=== PATIENT | female | born 1965 | race Caucasian/White ===

== ENCOUNTER 2016-04-15 08:58 | Inpatient (IN) | payer OTHER ==
[2016-04-15] VITALS (12 sets, daily range): BP systolic 98–127; BP diastolic 55–74; PULSE 67–80; RESP 13–15; TEMP 97.7; Ht 165.1 cm; Wt 64.0 kg
[~2016-04-15] VITALS: Ht 165.1 cm; Wt 64.0 kg
[~2016-04-15 08:58] MED LIST: ACET-2047 PO; CARI350T PO; CLIN-73 PO; CLON2TAB3 PO; DULO20CA43 PO; GABA-528 PO; HYDR-762 PO; IBUP-1542 PO; KLO5 PO; LEVO125T75 PO; LEVO25TA50 PO; LISI20TA11 PO; METH10TA2 PO
[2016-04-15] MEDS ORDERED: SOD CHLORIDE 0.9% 1,000 ML IV STA (09:43)
[2016-04-15] MEDS ORDERED: CHARCOAL (AQ) 50 GM/240 ML BTL PO STA (09:43)
[2016-04-15 10:18] LABS: BASOPHILS % 0.5 % (0.0-2.0); EOSINOPHILS # 0.2 10^3/ul (0.0-0.5); EOSINOPHILS % 3.3 % (0.0-7.0); HEMATOCRIT 37.2 % (37.0-47.0); HEMOGLOBIN 12.4 g/dl (12.0-16.0); LYMPHOCYTES # 0.9 10^3/ul (0.8-2.9); LYMPHOCYTES % 12.1 % (15.0-51.0); MEAN CORPUSCULAR HEMOGLOBIN 29.7 pg (29.0-33.0); MEAN CORPUSCULAR HGB CONC 33.3 g/dl (32.0-37.0); MEAN CORPUSCULAR VOLUME 89.1 fl (82.0-101.0); MEAN PLATELET VOLUME 8.7 fl (7.4-10.4); MONOCYTE # 0.5 10^3/ul (0.3-0.9); MONOCYTES % 6.9 % (0.0-11.0); NEUTROPHIL # 5.4 10^3/ul (1.6-7.5); NEUTROPHILS % 77.2 % (39.0-77.0); PLATELET COUNT 262 10^3/UL (140-440); RED BLOOD COUNT 4.17 10^6/ul (4.20-5.40)
[2016-04-15 10:24] LABS: CONDITION 1
[2016-04-15 10:26] LABS: ALBUMIN 3.6 g/dl (3.3-4.9)
[2016-04-15 10:27] LABS: CHLORIDE 104 mmol/L (97-110); POTASSIUM 4.5 mmol/L (3.5-5.1); SODIUM 140 mmol/L (135-144)
[2016-04-15 10:29] LABS: ALBUMIN/GLOBULIN RATIO 1.09; ALKALINE PHOSPHATASE 81 IU/L (42-121); ANION GAP 13 (8-16); ASPARTATE AMINO TRANSFERASE 37 IU/L (15-46); CARBON DIOXIDE 28 mmol/L (21-31); CREATININE 0.77 mg/dl (0.44-1.00); TOTAL PROTEIN 6.9 g/dl (6.1-8.1)
[2016-04-15 10:30] LABS: ALANINE AMINOTRANSFERASE 34 IU/L (13-69); BLOOD UREA NITROGEN 11 mg/dl (7-20); CALCIUM 8.8 mg/dl (8.4-10.2); GLUCOSE 62 mg/dl (70-220)
[2016-04-15 10:40] LABS: ACETAMINOPHEN < 10.0 ug/ml (10.0-30.0); ETHANOL < 10.0 mg/dl; SALICYLATE < 1.0 mg/dl (5.0-30.0)
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
[2016-04-15 11:49] LABS: ADD UMIC NO; URINE BILIRUBIN (Dip) NEGATIVE (NEGATIVE); URINE BLOOD (Dip) NEGATIVE (NEGATIVE); URINE COLOR LT. YELLOW (YELLOW); URINE GLUCOSE (Dip) NEGATIVE (NEGATIVE); URINE KETONES (Dip) NEGATIVE (NEGATIVE); URINE LEUKOCYTE ESTERASE (Dip) NEGATIVE (NEGATIVE); URINE NITRITE (Dip) NEGATIVE (NEGATIVE); URINE TOTAL PROTEIN (Dip) NEGATIVE (NEGATIVE); URINE UROBILINOGEN (Dip) 0.2 E.U./dL (0.1-1.0)
[2016-04-15] MEDS ORDERED: NALOXONE 2 MG SYG ONE (11:51)
[2016-04-15] MEDS ORDERED: NALOXONE 2 MG/2 ML SYG 2 MG in DEXTROSE 5% 498 ML IV SCH ×2 (12:00→13:00)
[2016-04-15] MEDS ORDERED: NALOXONE 2 MG SYG IV ONE (12:00)
[2016-04-15] MEDS ORDERED: DEXTROSE 50% 50 ML SYRINGE IV PRN (12:00)
[2016-04-15] MEDS ORDERED: DEXTROSE 50% 50 ML SYRINGE ONE (12:12)
[2016-04-15 12:19] LABS: BARBITURATES NEGATIVE (NEGATIVE); CANNABINOIDS NEGATIVE (NEGATIVE); COCAINE NEGATIVE (NEGATIVE); OPIATES POSITIVE (NEGATIVE)
[2016-04-15 12:20] LABS: BENZODIAZEPINES POSITIVE (NEGATIVE)
[2016-04-15] MEDS ORDERED: SOD CHLORIDE 0.9% 1,000 ML IV ONE (12:30)
[2016-04-15] MEDS ORDERED: SOD CHLORIDE 0.9% 1,000 ML IV SCH (12:54)
[2016-04-15] MEDS ORDERED: NITROGLYCERIN (SL) 0.4 MG TAB SL PRN (13:00)
[2016-04-15] MEDS ORDERED: LORAZEPAM 2 MG INJ IV PRN (13:00)
[2016-04-15] MEDS ORDERED: ONDANSETRON 4 MG INJ IV PRN (13:00)
[2016-04-15] MEDS ORDERED: DOCUSATE SODIUM 100 MG CAP PO PRN (13:00)
[2016-04-15] MEDS ORDERED: hydrALAzine 20 MG INJ IV PRN (14:30)
[2016-04-15] MEDS: DEXTROSE 5%-0.45% NACL 1,000 ML IV SCH ×2 (14:54→23:53)
[2016-04-15] MEDS ORDERED: SOD CHLORIDE 0.9% 500 ML IV ONE (15:30)
[2016-04-15] MEDS ORDERED: NORepinephrine 8MG/250 ML (PMX 0 ML ONE (15:31)
--- NOTE | 2016-04-15 17:26 | QN ---
Documentation Job number: [id number] Comment H&P done. For unclear reasons, this is not showing up in [facility]. Medical records aware. MOSES DEVI NP Apr 15, 2016 17:26
--- NOTE | 2016-04-15 18:10 | HP ---
DATE OF ADMISSION: 04/15/2016 REASON FOR ADMISSION: Brought in to the emergency room because of suicidal ideation and depression with suicidal attempt. HISTORY OF PRESENT ILLNESS: This is a 51-year-old female who is homeless with past medical history of depression, hypothyroidism, hypertension, hepatitis C, fibromyalgia and heroin abuse, currently on methadone, who was brought in by [employer] because of suicidal attempt at suicidal ideation. As per the report, the patient stated that she "wants to ". Upon further interrogation, the patient verbalized that she ingested fifteen 50 mg pills of Vistaril at 7:00 a.m. on 04/15/2016. The patient had no visible injuries to the body upon examination. The patient was given activated charcoal in the emergency room. As per [facility] pharmacist, the patient does not need to be given any charcoal at this time. As per the documentation, the patient was awake and alert at that time. The patient's vital signs were stable upon presentation. Later, the patient's blood pressure was noticed to be 63/40, which was treated with a sodium chloride IV bolus with improvement in the patient's blood pressure. The patient's urine drug screen was positive for benzodiazepines and opioids. The patient's ethyl alcohol level was less than 10. There was no 12-lead EKG done in the emergency room. As per the ER physician's notes, the patient had a prior attempts of suicide. The patient was lethargic, hence it was unable to elicit further information from the patient. The details were obtained by review of the patient's medical records. The patient was given a single dose of IV Narcan and the patient was started on Narcan too. PAST MEDICAL HISTORY: Hypothyroidism, seizure disorder, hypertension, depression, hepatitis C, fibromyalgia. PAST SURGICAL HISTORY: Unknown. HOME MEDICATIONS: 1. Soma 350 mg p.o. q.8h. p.r.n. muscle spasms. 2. Lisinopril 20 mg p.o. daily. 3. Clonazepam 2 mg p.o. t.i.d. 4. Cymbalta 20 mg p.o. daily. 5. Gabapentin 800 mg p.o. at bedtime. 6. Methadone 117 mg p.o. daily. 7. Synthroid 125 mg p.o. before breakfast. ALLERGIES: 1. PENICILLIN. 2. SULFA. 3. CEPHALEXIN. SOCIAL HISTORY: The patient is homeless. Currently an every day smoker. Denies any use of ETOH. Prior history of heroin abuse, currently on methadone. REVIEW OF SYSTEMS: Unable to obtain the review of systems because of the patient's clinical presentation. PHYSICAL EXAMINATION: VITAL SIGNS: Temperature 97.7, pulse 77, respiratory rate 70, blood pressure 112/87, oxygen saturation 100% on room air. GENERAL: This is an adequately built female lying in bed, very lethargic, in no apparent distress. HEENT: Head normocephalic and atraumatic. Eyes: Anicteric sclerae, pinpoint pupils, pupils are equal. ENT: Nasal septum is midline. Oral mucosa is dry. Black charcoal powder found in the oral mucosa. NECK: Supple. No JVD noticed. RESPIRATORY: Bilaterally clear to auscultation. No adventitious breath sounds. No use of accessory muscles for respiration. CARDIAC: Regular rate and rhythm. No obvious murmurs heard. ABDOMEN: Soft. Bowel sounds hypoactive in all 4 quadrants. GENITOURINARY: Deferred. EXTREMITIES: No cyanosis, no clubbing, no edema. Peripheral pulses are palpable. NEUROLOGIC: The patient is lethargic. Minimal response to painful stimuli. Skin intact. Multiple tattoos. LAB & DIAGNOSTIC DATA: WBC 7.0, Hgb 12.4, Hct37.2, Plt 262. Sodium 140 , potassium 4.5, chloride 104 , carbon [id number], anion gap 13, BUN 11, creatinine 0.77, glucose 62. Urine drug toxicology: Positive for opiates and benzodiazepines. IMPRESSION: This is a 51-year-old female who was brought to the emergency room because of a suicide attempt with ingestion 15 tablets of Vistaril who will be admitted here for further treatment and evaluation. ASSESSMENT AND PLAN: 1. Intentional overdosing with antihistamines. The patient already received a single dose of Narcan in the emergency room. The patient will be maintained on a Narcan drip. The patient's airway will be monitored closely. The patient's cardiac rhythm will be monitored closely, including the QT interval. Poison Control was informed about the patient's case. Follow up with Poison Control on a periodic basis. 2. Depression with suicidal ideation. The patient will be kept on 1:1 supervision. Once the patient is medically stable, the patient needs transfer to a psych facility. 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 3. Hypotension, most probably from overdosing. The patient's hypotension responded well to IV resuscitation. The patient will be maintained on IV fluids. 4. Hypothyroidism. A thyroid function study will be obtained on this patient. She will be resumed on Synthroid once she is awake and alert. 5. Essential hypertension (history). The patient's antihypertensives will be held at this time because of the current hypotensive episode. The patient will be started on p.r.n. antihypertensives for any systolic blood pressure readings greater than 160 mmHg. 6. History of heroin abuse, on methadone. All the patient's oral medications will be held at this time until the patient is more awake and alert. 7. Nicotine use. The patient is a current everyday nicotine user. The patient will be provided with a nicotine patch if she develops any symptoms of nicotine withdrawal. 8. Incomplete database. The patient's comprehensive medical history is unavailable at this time because of the patient's clinical condition. When the patient is more awake and alert, will obtain a complete medical history on this patient. PLAN. The patient will be admitted to intensive care unit. The patient will be kept n.p.o. The patient's airway will be monitored closely. Continuous capnography will be done to evaluate for any respiratory compromise. The patient will be monitored for any seizures. The patient will be monitored for any QT prolongation. The patient will remain a FULL CODE. The patient will have a 1:[address] The patient will be started on DVT prophylaxis and gastrointestinal prophylaxis. The rest of the patient's management will be based on the clinical course and the results of diagnostic studies. Based on the patient's clinical presentation, she most probably requires at least 2 midnights' stay for further management and evaluation of her clinical presentation. The case and management of this patient was fully discussed with Dr. Mace. Approximately 60 minutes was spent on the history and physical on this patient. MOSES MACE MD, AM/JEFF Conf#: [id number] DID#: [id number] MTDD
--- NOTE | 2016-04-15 19:18 | RADRPT ---
PROCEDURE: XR Chest. CLINICAL INDICATION: Chest pain TECHNIQUE: Single frontal chest x-ray. COMPARISON: None. FINDINGS: The lungs are clear. No focal opacification is seen. The cardiomediastinal silhouette is unremarka ble. Aortic atherosclerotic vascular calcifications are identified. The osseous structures are unr emarkable. IMPRESSION: 1. There is no acute cardiopulmonary process. RPTAT: HMJB .Tc Harp MD, MD Date Time Electronically viewed and signed by .Tc Harp MD, on 04/15/2016 10:24 .B/
[2016-04-15] MEDS: FAMOTIDINE 20 MG INJ IV SCH (21:53)
[2016-04-16] VITALS (34 sets, daily range): BP systolic 95–122; BP diastolic 48–88; PULSE 65–85; RESP 11–18
[2016-04-16 05:17] LABS: BASOPHILS % 0.4 % (0.0-2.0); HEMATOCRIT 33.2 % (37.0-47.0); HEMOGLOBIN 11.1 g/dl (12.0-16.0); LYMPHOCYTES # 0.5 10^3/ul (0.8-2.9); LYMPHOCYTES % 5.3 % (15.0-51.0); MEAN CORPUSCULAR HEMOGLOBIN 29.5 pg (29.0-33.0); MEAN CORPUSCULAR HGB CONC 33.3 g/dl (32.0-37.0); MEAN CORPUSCULAR VOLUME 88.6 fl (82.0-101.0); MEAN PLATELET VOLUME 8.6 fl (7.4-10.4); MONOCYTE # 0.3 10^3/ul (0.3-0.9); MONOCYTES % 2.9 % (0.0-11.0); NEUTROPHIL # 7.9 10^3/ul (1.6-7.5); NEUTROPHILS % 91.4 % (39.0-77.0); PLATELET COUNT 240 10^3/UL (140-440); RED BLOOD COUNT 3.74 10^6/ul (4.20-5.40); RED CELL DISTRIBUTION WIDTH 13.3 % (11.5-14.5); UNCORRECTED WBC 8.6 10^3/ul (4.8-10.8); WHITE BLOOD COUNT 8.6 10^3/ul (4.8-10.8)
[2016-04-16 05:22] LABS: INR 1.1; PROTIME 14.2 Sec (12.2-14.2); PT RATIO 1.1
[2016-04-16 05:23] LABS: PARTIAL THROMBOPLASTIN TIME 27.9 Sec (25.0-35.0)
[2016-04-16 05:33] LABS: CONDITION 1; LH ANALYZER COMMENTS 1
[2016-04-16 05:49] LABS: CHOL/HDL RATIO 2.3 RATIO; PHOSPHORUS 4.1 mg/dl (2.5-4.9)
[2016-04-16 05:54] LABS: ALBUMIN 2.9 g/dl (3.3-4.9)
[2016-04-16 05:55] LABS: POTASSIUM 3.7 mmol/L (3.5-5.1)
[2016-04-16 05:57] LABS: ALBUMIN/GLOBULIN RATIO 0.9; CREATININE 0.8 mg/dl (0.44-1.00); TOTAL PROTEIN 6.1 g/dl (6.1-8.1)
[2016-04-16] MEDS: FAMOTIDINE 20 MG INJ IV SCH ×2 (08:15→20:59)
--- NOTE | 2016-04-16 10:17 | PN ---
Date/Time of Note Date/Time of Note DATE: 04/16/16 TIME: 10:13 Assessment/Plan VTE Prophylaxis VTE Prophylaxis Intervention: SCD's Lines/Catheters IV [facility] (from [facility] Peripheral IV Urinary Cath still in place: Yes Reason Cath still needed: other (indicate) (monitor I&O) Assessment/Plan Chief Complaint/Hosp Course Assessment and plan 1. Intentional overdose with Vistaril and reported heroin. Patient is status post Narcan drip. Is more alert at this time. Poison control performed about patient's case. Continue the recommendations. Continue cardiac monitoring. 2. History of major depression and suicidal ideation/attempt. Continue patient on one-to-one supervision. Patient be transferred to psychiatric facility once medically stable. transfer and line up worker to follow. Patient to be evaluated by telepsych 3. Hypotension. Likely secondary to opiate overdose. Continue IV fluids. Monitor for hypotension. 4. Hypothyroidism. We'll resume Synthroid 5. History of essential hypertension. Stable at present. We'll provide with antihypertensives for systolic greater than 160 6. History of heroin abuse. Patient does take methadone and follow-up at a methadone clinic. We'll get pain management physician to help with methadone dosing 7. History of nicotine abuse. Cessation advised. Disposition and plan: Continue one-to-one sitter. Patient to be evaluated by telepsych consult. Await for clinical improvement of mental status. Discussed plan of care with Dr. Roca Problems: Subjective 24 Hr Interval Summary Free Text/Dictation Patient remains in ICU. Still somnolent. Was able to discuss with patient and she did state that she did have suicidal ideation prior to this admission. Exam/Review of Systems Vital Signs Vitals Vital Signs Date Time Temp Pulse Resp B/P Pulse Ox O2 Delivery O2 Flow Rate FiO2 04/16/16 09:30 79 13 113/64 100 04/16/16 09:00 Room Air 04/16/16 08:00 97.3 04/15/16 23:00 2.0 Intake and Output 04/15/16 04/15/16 04/16/16 15:00 23:00 07:00 Intake Total 300 ml 820 ml Output Total 1900 ml 1400 ml Balance -1600 ml -580 ml Exam General: No acute signs or symptoms of distress, somnolent Eyes: pupils equal round, Anicteric sclera Neck: Supple nontender, no JVD Cardiac: S1, S2 auscultated, regular rhythm and rate Pulmonary: No coarse rhonchi or breathing auscultated GI: Abdomen soft nontender nondistended, bowel sounds active Extremities: No edema bilateral lower extremities Skin: Clean dry and intact Neurologic: Alert to person place and situation, slightly lethargic Results Result Diagram: 04/16/16 0436 04/16/16 0436 Results 24 hrs Laboratory Tests Test 04/15/16 11:40 04/15/16 12:54 04/15/16 19:40 04/16/16 04:36 Urine Amphetamines Screen NEGATIVE Urine Barbiturates NEGATIVE Urine Benzodiazepines Screen POSITIVE Urine Bilirubin NEGATIVE Urine Cannabinoids NEGATIVE Urine Clarity CLEAR Urine Cocaine Screen NEGATIVE Urine Color LT. YELLOW Urine Glucose NEGATIVE Urine Hemoglobin NEGATIVE Urine Ketones NEGATIVE Urine Leukocyte Esterase NEGATIVE Urine Nitrite NEGATIVE Urine Opiates Screen POSITIVE Urine Specific [place] 1.020 Urine Total Protein NEGATIVE Urine Urobilinogen 0.2 E.U./dL Urine pH 6.0 Free Thyroxine 3.40 H Hemoglobin A1c 5.0 Thyroid Stimulating Hormone (TSH) 0.760 Troponin I < 0.012 < 0.012 Urine Test NEGATIVE Activated Partial Thromboplast Time 27.9 Alanine Aminotransferase (ALT/SGPT) 40 Albumin 2.9 L Albumin/Globulin Ratio 0.90 Alkaline Phosphatase 67 Anion Gap 16 Aspartate Amino Transf (AST/SGOT) 46 Basophils # 0.0 Basophils % 0.4 Blood Urea Nitrogen 21 H Calcium Level 8.0 L Carbon Dioxide Level 20 L Chloride Level 111 H Cholesterol Level 142 Cholesterol/HDL Ratio 2.3 Creatinine 0.80 Direct Bilirubin 0.00 Eosinophils # 0.0 Eosinophils % 0.0 Globulin 3.20 Glucose Level 92 HDL Cholesterol 60 Hematocrit 33.2 L Hemoglobin 11.1 L INR International Normalized Ratio 1.10 Indirect Bilirubin 0.0 LDL Cholesterol, Calculated 76 Lactic Acid Level 1.8 Lymphocytes # 0.5 L Lymphocytes % 5.3 L Magnesium Level 2.0 Mean Corpuscular Hemoglobin 29.5 Mean Corpuscular Hemoglobin Concent 33.3 Mean Corpuscular Volume 88.6 Mean Platelet Volume 8.6 Monocytes # 0.3 Monocytes % 2.9 Neutrophils # 7.9 H Neutrophils % 91.4 H Nucleated Red Blood Cells # 0.0 Nucleated Red Blood Cells % 0.0 Phosphorus Level 4.1 Platelet Count 240 Potassium Level 3.7 Prothrombin Time 14.2 Prothrombin Time Ratio 1.1 Red Blood Count 3.74 L Red Cell Distribution Width 13.3 Sodium Level 143 Total Bilirubin 0.0 L Total Protein 6.1 Triglycerides Level 30 White Blood Count 8.6 # Medications Medications Current Medications Naloxone HCl/ Dextrose (Narcan/D5W) 500 ml @ 0 mls/hr TITRATE IV Last administered on 04/15/16 14:57; Admin Dose 199.6 MLS/HR; Start 04/15/16 at 12:00 Dextrose (D50w Syringe) 50 ml 1159 PRN IV DECREASED GLUCOSE Last administered on 04/15/16 12:13; Admin Dose 50 ML; Start 04/15/16 at 12:00 Ondansetron HCl (Zofran Inj) 4 mg Q6H PRN IV NAUSEA AND/OR VOMITING; Start 04/15 at 13:00 Nitroglycerin (Nitroglycerin (Sl Tab) 0.4 Mg) 1 tab Q5M PRN SL CHEST PAIN; Start 04/15/16 at 13:00 Acetaminophen (Tylenol Liquid) 650 mg Q6H PRN PO PAIN LEVEL 1-3 OR FEVER; Start 04/15/16 at 13:00 Lorazepam (Ativan) 1 mg Q2H PRN IV ANXIETY; Start 04/15/16 at 13:00 Docusate Sodium (Colace) 100 mg Q12H PRN PO CONSTIPATION; Start 04/15/16 at 13: 00 Famotidine 20 mg 20 mg Q12 IV Last administered on 04/16/16 08:15; Admin Dose 20 MG; Start 04/15/16 at 21:00 Dextrose/Sodium Chloride (D5-1/2ns) 1,000 ml @ 100 mls/hr Q10H IV Last administered on 04/15/16 23:53; Admin Dose 100 MLS/HR; Start 04/15/16 at 14:00 Hydralazine HCl 10 mg 10 mg Q6H PRN IV SBP>160; Start 04/15/16 at 14:30 Norepinephrine/ Dextrose (Levophed/D5W) 500 ml @ 1.87 mls/hr TITRATE IV ; Start 04/15/16 at 15:30 TIGIST LOZADA Apr 16, 2016 10:17
[2016-04-16] MEDS: DEXTROSE 5%-0.45% NACL 1,000 ML IV SCH ×2 (10:20→15:55)
[2016-04-16] MEDS: METHADONE 10 MG TAB PO SCH (14:59)
[2016-04-17] MEDS: OXYMETAZOLINE 0.05% 15 ML NAS SPRAY NASAL PRN ×2 (00:43→12:38)
[2016-04-17] MEDS: DEXTROSE 5%-0.45% NACL 1,000 ML IV SCH ×2 (00:49→15:07)
[2016-04-17] MEDS: ACETAMINOPHEN 650MG/20.3ML CUP PO PRN (03:38)
[2016-04-17 05:17] LABS: BASOPHILS % 0.2 % (0.0-2.0); EOSINOPHILS # 0.1 10^3/ul (0.0-0.5); HEMATOCRIT 30.9 % (37.0-47.0); HEMOGLOBIN 10.5 g/dl (12.0-16.0); LYMPHOCYTES # 0.6 10^3/ul (0.8-2.9); LYMPHOCYTES % 7.6 % (15.0-51.0); MEAN CORPUSCULAR HGB CONC 33.9 g/dl (32.0-37.0); MEAN CORPUSCULAR VOLUME 88.4 fl (82.0-101.0); MEAN PLATELET VOLUME 8.6 fl (7.4-10.4); MONOCYTE # 0.7 10^3/ul (0.3-0.9); MONOCYTES % 8.9 % (0.0-11.0); NEUTROPHIL # 6.1 10^3/ul (1.6-7.5); NEUTROPHILS % 82.3 % (39.0-77.0); PLATELET COUNT 196 10^3/UL (140-440); RED BLOOD COUNT 3.49 10^6/ul (4.20-5.40); RED CELL DISTRIBUTION WIDTH 13.4 % (11.5-14.5); UNCORRECTED WBC 7.5 10^3/ul (4.8-10.8); WHITE BLOOD COUNT 7.5 10^3/ul (4.8-10.8)
[2016-04-17 05:27] LABS: CONDITION 1
[2016-04-17 05:31] LABS: ALBUMIN 2.7 g/dl (3.3-4.9); POTASSIUM 3.3 mmol/L (3.5-5.1)
[2016-04-17 05:33] LABS: CREATININE 0.76 mg/dl (0.44-1.00)
[2016-04-17 05:34] LABS: ALBUMIN/GLOBULIN RATIO 0.93; BILIRUBIN,INDIRECT 0.3 mg/dl (0-1.1); BILIRUBIN,TOTAL 0.3 mg/dl (0.2-1.3); CALCIUM 8.1 mg/dl (8.4-10.2); TOTAL PROTEIN 5.6 g/dl (6.1-8.1)
[2016-04-17 07:25] VITALS: BP 125/62; RESP 18
[2016-04-17] MEDS: FAMOTIDINE 20 MG INJ IV SCH ×2 (08:31→21:07)
[2016-04-17] MEDS: METHADONE 10 MG TAB PO SCH (08:32)
--- NOTE | 2016-04-17 09:14 | RADRPT ---
Vent Rate: 78 bpm RR Interval: 0 msec PA Interval: 158 msec QRS Duration: 102 msec QT Interval: 462 msec QTC Interval: 526 msec P-R-T [place]: 70 - 80 - 63 degrees Normal sinus rhythm Possible Left atrial enlargement Prolonged QT Abnormal ECG Electronically Signed By: Jc Mayberry [id number]
--- NOTE | 2016-04-17 09:15 | RADRPT ---
Vent Rate: 82 bpm RR Interval: 0 msec MD Interval: 160 msec QRS Duration: 100 msec QT Interval: 386 msec QTC Interval: 450 msec P-R-T [place]: 72 - 80 - 55 degrees Normal sinus rhythm Nonspecific T wave abnormality Abnormal ECG Electronically Signed By: Gene Santos [id number]
--- NOTE | 2016-04-17 10:49 | CONS ---
DATE OF ADMISSION: 04/15/2016 DATE OF CONSULTATION: 04/17/2016 TYPE OF CONSULTATION: Pain management. HISTORY OF PRESENT ILLNESS: This patient is in the intensive care unit at [facility] who was apparently brought into the hospital with suicidal ideations. According to the patient a nd notes from the emergency room, she had taken an overdose amount of Vistaril. Poison Control Hunter sudheer was contacted. The patient did not require charcoal or any other intervention or has been admitted for monitoring. She has a past medical history of heroin use, last time she used was 1 day prior t o hospitalization. She was prescribed methadone, when taking it was approximately 1 week prior to is presentation at that time. She states that her dose was 210 mg per day. She is being seen by a [facility] maintenance clinic, but last time she was seen was 2 days ago and this story is somewhat con fused at this time, but she did not receive her usual dose. The patient lives on the [address] and has been addicted to some substances since she was 17 years old. She has a strong family history of sub stance abuse; brother, sister, mother. There is no past history of suicidal attempts. Denies using any other substances, although she states she smokes only. Apparently has been seen by a physician hunter rocha was prescribed a combination of Soma, Klonopin, lisinopril, Cymbalta, and Synthroid, although it is unclear who the primary care physician is and whether or not she has been taking them, but she sa ys she has been living on the street with 2 friends for a very prolonged period of time. She states that she is still , but she does not live with her , but he has been nice enough to g bassam her money on occasion. She has been admitted to a treatment program in the past but not in many years. PHYSICAL EXAMINATION: GENERAL: Shows a thin-appearing female who is unkempt on examination and lethargic. VITAL SIGNS: Blood pressure 125/62, pulse is 72 and regular, respirations of 18, temperature 99.5 d egrees, 100% saturation on room air. HEENT: She is normocephalic and atraumatic. Anicteric, acyanotic. CHEST: Shows bilateral clear breath sounds throughout both lung rivero. COR: S1, S2, without S3, S4, murmur, gallop, rub. Normal rate, normal rhythm. ABDOMEN: Grossly benign. LABORATORY DATA: Tests have been reviewed, pertinent for this consultation: White blood cell count 7.5, hemoglobin at10.5, hematocrit of 30.9, MCV of 88.4, platelet count 196,000. Chemistries: Seru m sodium of 137, potassium 3.3, chloride 104, bicarbonate 24, BUN of 13, creatinine 0.76. Toxicologi stacy examination done in the emergency room shows positive for opioids, benzodiazepines. ASSESSMENT AND PLAN: This is an unfortunate 51-year-old female who has been in and out of treatment programs for most of her life, who is currently still using heroin. Unclear why she was denied meth adone approximately 2 days prior to this presentation. She states because of her relationship with her fiance who , presumably of an overdose, she became depressed then tried to commit suicide wi Vistaril. She is currently stable from a metabolic standpoint. I will restart her methadone at 60 mg daily. I have had a long discussion with her that we will not prescribe 200 mg, as she is still lethargic at this time, nor will I restart benzodiazepine. The patient is receptive to going direct ly into her treatment program. Dictated By: RAINA MAK MD, LP/JEFF Conf#: [id number] DID#: [id number]
[2016-04-17] MEDS ORDERED: POTASSIUM CHLORIDE (SR) 20 MEQ TAB PO STA (12:10)
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
--- NOTE | 2016-04-17 16:55 | PN ---
Date/Time of Note Date/Time of Note DATE: 04/17/16 TIME: 16:40 Assessment/Plan VTE Prophylaxis VTE Prophylaxis Intervention: SCD's Lines/Catheters IV Catheter Type (from [facility]): Peripheral IV Urinary Cath still in place: Yes Assessment/Plan Chief Complaint/Hosp Course Assessment and plan 1. Intentional overdose with Vistaril and reported heroin. Patient is status post Narcan drip. Is more alert at this time. Poison control performed about patient's case. Continue the recommendations. Continue cardiac monitoring. 2. History of major depression and recent suicidal ideation/attempt. Continue patient on one-to-one supervision. Patient be transferred to psychiatric facility once medically stable. domestic laundry worker following. Patient seen by telepsych consult. Per recommendation patient will need transfer to inpatient psych due to patient's report of still not sure if she is still suicidal. 3. Hypotension. Likely secondary to opiate overdose. Continue IV fluids. Monitor for hypotension. 4. Hypothyroidism. We'll resume Synthroid 5. History of essential hypertension. Stable at present. We'll provide with antihypertensives for systolic greater than 160 6. History of heroin abuse. Patient does take methadone and follow-up at a methadone clinic. We'll get pain management physician to help with methadone dosing 7. History of nicotine abuse. Cessation advised. Disposition and plan: Continue one-to-one sitter for suicidal ideation. Patient will need transfer to inpatient psychiatric facility. We'll follow-up with case management Discussed plan of care with Dr. Roca Problems: Subjective 24 Hr Interval Summary Free Text/Dictation no s/s of acute distress at this time Exam/Review of Systems Vital Signs Vitals Vital Signs Date Time Temp Pulse Resp B/P Pulse Ox O2 Delivery O2 Flow Rate FiO2 04/17/16 07:25 99.5 72 18 125/62 100 04/16/16 15:56 Room Air 04/15/16 23:00 2.0 Intake and Output 04/16/16 04/16/16 04/17/16 14:59 22:59 06:59 Intake Total 1680 ml 590 ml 2640 ml Output Total 875 ml 625 ml 2600 ml Balance 805 ml -35 ml 40 ml Exam General: No acute signs or symptoms of distress, more awake Eyes: pupils equal round, Anicteric sclera Neck: Supple nontender, no JVD Cardiac: S1, S2 auscultated, regular rhythm and rate Pulmonary: No coarse rhonchi or breathing auscultated GI: Abdomen soft nontender nondistended, bowel sounds active Extremities: No edema bilateral lower extremities Skin: Clean dry and intact Neurologic: Alert to person place and situation, Results Result Diagram: 04/17/16 0450 04/17/16 0450 Results 24 hrs Laboratory Tests Test 04/17/16 04:50 Alanine Aminotransferase (ALT/SGPT) 32 Albumin 2.7 L Albumin/Globulin Ratio 0.93 Alkaline Phosphatase 55 Anion Gap 12 Aspartate Amino Transf (AST/SGOT) 29 Basophils # 0.0 Basophils % 0.2 Blood Urea Nitrogen 13 Calcium Level 8.1 L Carbon Dioxide Level 24 Chloride Level 104 Creatinine 0.76 Direct Bilirubin 0.00 Eosinophils # 0.1 Eosinophils % 1.0 Globulin 2.90 Glucose Level 89 Hematocrit 30.9 L Hemoglobin 10.5 L Indirect Bilirubin 0.3 Lymphocytes # 0.6 L Lymphocytes % 7.6 L Mean Corpuscular Hemoglobin 30.0 Mean Corpuscular Hemoglobin Concent 33.9 Mean Corpuscular Volume 88.4 Mean Platelet Volume 8.6 Monocytes # 0.7 Monocytes % 8.9 Neutrophils # 6.1 Neutrophils % 82.3 H Nucleated Red Blood Cells # 0.0 Nucleated Red Blood Cells % 0.0 Platelet Count 196 Potassium Level 3.3 L Red Blood Count 3.49 L Red Cell Distribution Width 13.4 Sodium Level 137 Total Bilirubin 0.3 Total Protein 5.6 L White Blood Count 7.5 Medications Medications Current Medications Dextrose (D50w Syringe) 50 ml 1159 PRN IV DECREASED GLUCOSE Last administered on 04/15/16 12:13; Admin Dose 50 ML; Start 04/15/16 at 12:00 Ondansetron HCl (Zofran Inj) 4 mg Q6H PRN IV NAUSEA AND/OR VOMITING; Start 04/15 at 13:00 Nitroglycerin (Nitroglycerin (Sl Tab) 0.4 Mg) 1 tab Q5M PRN SL CHEST PAIN; Start 04/15/16 at 13:00 Acetaminophen (Tylenol Liquid) 650 mg Q6H PRN PO PAIN LEVEL 1-3 OR FEVER Last administered on 04/17/16 03:38; Admin Dose 650 MG; Start 04/15/16 at 13:00 Docusate Sodium (Colace) 100 mg Q12H PRN PO CONSTIPATION; Start 04/15/16 at 13: 00 Famotidine 20 mg 20 mg Q12 IV Last administered on 04/17/16 08:31; Admin Dose 20 MG; Start 04/15/16 at 21:00 Dextrose/Sodium Chloride (D5-1/2ns) 1,000 ml @ 100 mls/hr Q10H IV Last administered on 04/17/16 15:07; Admin Dose 100 MLS/HR; Start 04/15/16 at 14:00 Hydralazine HCl (Apresoline) 10 mg Q6H PRN IV SBP>160; Start 04/15/16 at 14:30 Methadone HCl (Methadone) 60 mg AM PO Last administered on 04/17/16 08:32; Admin Dose 60 MG; Start 04/16/16 at 14:54 Oxymetazoline HCl (Afrin [place]) 2 spray BID PRN NASAL NASAL CONGESTION Last administered on 04/17/16 12:38; Admin Dose 2 SPRAY; Start 04/16/16 at 23:30 TIGIST LOZADA Apr 17, 2016 16:55
[2016-04-17 19:52] VITALS: BP 139/79; RESP 18
[2016-04-18] MEDS: OXYMETAZOLINE 0.05% 15 ML NAS SPRAY NASAL PRN (00:06)
[2016-04-18] MEDS: ACETAMINOPHEN 650MG/20.3ML CUP PO PRN (00:06)
[2016-04-18] MEDS: DEXTROSE 5%-0.45% NACL 1,000 ML IV SCH ×3 (01:12→22:00)
[2016-04-18] MEDS: clonAZEPAM 0.5 MG TAB PO PRN ×3 (02:44→20:53)
[2016-04-18 05:48] LABS: BASOPHILS % 0.4 % (0.0-2.0); EOSINOPHILS % 0.5 % (0.0-7.0); HEMATOCRIT 29.6 % (37.0-47.0); HEMOGLOBIN 10.4 g/dl (12.0-16.0); LYMPHOCYTES % 15.1 % (15.0-51.0); MEAN CORPUSCULAR HEMOGLOBIN 30.9 pg (29.0-33.0); MEAN CORPUSCULAR HGB CONC 35.1 g/dl (32.0-37.0); MEAN CORPUSCULAR VOLUME 88.2 fl (82.0-101.0); MEAN PLATELET VOLUME 9.1 fl (7.4-10.4); MONOCYTE # 0.5 10^3/ul (0.3-0.9); MONOCYTES % 7.2 % (0.0-11.0); NEUTROPHIL # 5.2 10^3/ul (1.6-7.5); NEUTROPHILS % 76.8 % (39.0-77.0); PLATELET COUNT 157 10^3/UL (140-440); RED BLOOD COUNT 3.35 10^6/ul (4.20-5.40); UNCORRECTED WBC 6.8 10^3/ul (4.8-10.8); WHITE BLOOD COUNT 6.8 10^3/ul (4.8-10.8)
[2016-04-18 05:53] LABS: ALBUMIN 3.2 g/dl (3.3-4.9)
[2016-04-18 05:54] LABS: POTASSIUM 3.3 mmol/L (3.5-5.1)
[2016-04-18 05:56] LABS: BILIRUBIN,INDIRECT 0.2 mg/dl (0-1.1); BILIRUBIN,TOTAL 0.2 mg/dl (0.2-1.3); CREATININE 0.58 mg/dl (0.44-1.00)
[2016-04-18 05:57] LABS: ALBUMIN/GLOBULIN RATIO 1.1; CALCIUM 8.8 mg/dl (8.4-10.2); TOTAL PROTEIN 6.1 g/dl (6.1-8.1)
[2016-04-18 06:19] LABS: CONDITION 1
[2016-04-18] MEDS ORDERED: VITAMIN A & D 5 GM OINT PACKET TOP PRN (07:00)
[2016-04-18 07:51] VITALS: BP 141/72; RESP 18
[2016-04-18] MEDS: FAMOTIDINE 20 MG INJ IV SCH (08:29)
[2016-04-18] MEDS: DULOXETINE 20 MG CAP DR PO SCH (08:29)
[2016-04-18] MEDS: LEVOTHYROXINE 125 MCG TAB PO SCH (08:29)
[2016-04-18] MEDS: LISINOPRIL 20 MG TAB PO SCH (08:31)
[2016-04-18] MEDS ORDERED: METHADONE 10 MG TAB PO SCH ×2 (09:00→19:30)
--- NOTE | 2016-04-18 15:42 | PN ---
Date/Time of Note Date/Time of Note DATE: 04/18/16 TIME: 15:39 Assessment/Plan VTE Prophylaxis VTE Prophylaxis Intervention: SCD's Lines/Catheters [facility] Peripheral IV Urinary Cath still in place: No Assessment/Plan Chief Complaint/Hosp Course Assessment and plan 1. Intentional overdose with Vistaril and reported heroin. Patient is status post Narcan drip. Is more alert at this time. Poison control performed about patient's case. Continue the recommendations. Continue cardiac monitoring. 2. History of major depression and recent suicidal ideation/attempt. Continue patient on one-to-one supervision. Patient be transferred to psychiatric facility once medically stable. material worker following. Patient seen by telepsych consult. Per recommendation patient will need transfer to inpatient psych due to patient's report of still not sure if she is still suicidal. 3. Hypotension. Likely secondary to opiate overdose. Continue IV fluids. Monitor for hypotension. 4. Hypothyroidism. We'll resume Synthroid 5. History of essential hypertension. Stable at present. We'll provide with antihypertensives for systolic greater than 160 6. History of heroin abuse. Patient does take methadone and follow-up at a methadone clinic. We'll get pain management physician to help with methadone dosing 7. History of nicotine abuse. Cessation advised. Disposition and plan: Continue one-to-one sitter for suicidal ideation. Patient will need transfer to inpatient psychiatric facility. Awaiting placement Discussed plan of care with Dr. Roca Problems: Subjective 24 Hr Interval Summary Free Text/Dictation no s/s of distress Exam/Review of Systems Vital Signs Vitals Vital Signs Date Time Temp Pulse Resp B/P Pulse Ox O2 Delivery O2 Flow Rate FiO2 04/18/16 07:51 98.0 74 18 141/72 97 04/16/16 15:56 Room Air 04/15/16 23:00 2.0 Intake and Output 04/17/16 04/17/16 04/18/16 15:00 23:00 07:00 Intake Total 1000 ml 2400 ml 1700 ml Output Total 1800 ml Balance 1000 ml 600 ml 1700 ml Exam General: No acute signs or symptoms of distress, more awake Eyes: pupils equal round, Anicteric sclera Neck: Supple nontender, no JVD Cardiac: S1, S2 auscultated, regular rhythm and rate Pulmonary: No coarse rhonchi or breathing auscultated GI: Abdomen soft nontender nondistended, bowel sounds active Extremities: No edema bilateral lower extremities Skin: Clean dry and intact Neurologic: Alert to person place and situation, Results Result Diagram: 04/18/167 04/18/167 Results 24 hrs Laboratory Tests Test 04/18/16 04:37 Alanine Aminotransferase (ALT/SGPT) 28 Albumin 3.2 L Albumin/Globulin Ratio 1.10 Alkaline Phosphatase 62 Anion Gap 12 Aspartate Amino Transf (AST/SGOT) 22 Basophils # 0.0 Basophils % 0.4 Blood Urea Nitrogen 8 Calcium Level 8.8 Carbon Dioxide Level 29 Chloride Level 105 Creatinine 0.58 Direct Bilirubin 0.00 Eosinophils # 0.0 Eosinophils % 0.5 Globulin 2.90 Glucose Level 133 # Hematocrit 29.6 L Hemoglobin 10.4 L Indirect Bilirubin 0.2 Lymphocytes # 1.0 Lymphocytes % 15.1 Mean Corpuscular Hemoglobin 30.9 Mean Corpuscular Hemoglobin Concent 35.1 Mean Corpuscular Volume 88.2 Mean Platelet Volume 9.1 Monocytes # 0.5 Monocytes % 7.2 Neutrophils # 5.2 Neutrophils % 76.8 Nucleated Red Blood Cells # 0.0 Nucleated Red Blood Cells % 0.0 Platelet Count 157 Potassium Level 3.3 L Red Blood Count 3.35 L Red Cell Distribution Width 13.0 Sodium Level 143 Total Bilirubin 0.2 Total Protein 6.1 White Blood Count 6.8 Medications Medications Current Medications Dextrose (D50w Syringe) 50 ml 1159 PRN IV DECREASED GLUCOSE Last administered on 04/15/16 12:13; Admin Dose 50 ML; Start 04/15/16 at 12:00 Ondansetron HCl (Zofran Inj) 4 mg Q6H PRN IV NAUSEA AND/OR VOMITING Last administered on 04/18/16 06:59; Admin Dose 4 MG; Start 04/15/16 at 13:00 Nitroglycerin (Nitroglycerin (Sl Tab) 0.4 Mg) 1 tab Q5M PRN SL CHEST PAIN; Start 04/15/16 at 13:00 Acetaminophen (Tylenol Liquid) 650 mg Q6H PRN PO PAIN LEVEL 1-3 OR FEVER Last administered on 04/18/16 00:06; Admin Dose 650 MG; Start 04/15/16 at 13:00 Docusate Sodium 100 mg 100 mg Q12H PRN PO CONSTIPATION; Start 04/15/16 at 13:00 Dextrose/Sodium Chloride (D5-1/2ns) 1,000 ml @ 100 mls/hr Q10H IV Last administered on 04/18/16 12:53; Admin Dose 100 MLS/HR; Start 04/15/16 at 14:00 Hydralazine HCl (Apresoline) 10 mg Q6H PRN IV SBP>160; Start 04/15/16 at 14:30 Oxymetazoline HCl (Afrin [place]) 2 spray BID PRN NASAL NASAL CONGESTION Last administered on 04/18/16 00:06; Admin Dose 2 SPRAY; Start 04/16/16 at 23:30 Duloxetine HCl (Cymbalta) 20 mg DAILY PO Last administered on 04/18/16 08:29; Admin Dose 20 MG; Start 04/18/16 at 09:00 Lisinopril (Zestril) 20 mg DAILY PO Last administered on 04/18/16 08:31; Admin Dose 20 MG; Start 04/18/16 at 09:00 Methadone HCl (Methadone) 80 mg DAILY PO Last administered on 04/18/16 08:31; Admin Dose 80 MG; Start 04/18/16 at 09:00 Clonazepam (Klonopin) 1 mg Q8H PRN PO ANXIETY Last administered on 04/18/16 11: 22; Admin Dose 1 MG; Start 04/18/16 at 03:00 Vitamin A/Vitamin D (Vitamin A & D Oint) 1 applic TID PRN TOP NOTE Last administered on 04/18/16 06:59; Admin Dose 1 APPLIC; Start 04/18/16 at 07:00 Famotidine (Pepcid) 20 mg BID PO ; Start 04/18/16 at 21:00 TIGIST LOZADA Apr 18, 2016 15:42
[2016-04-18 19:30] VITALS: BP 98/59; RESP 19
[2016-04-18] MEDS: FAMOTIDINE 20 MG TAB PO SCH (20:53)
[2016-04-18 22:00] VITALS: BP 113/57; RESP 19
[2016-04-18] MEDS ORDERED: clonAZEPAM 0.5 MG TAB PO PRN (22:20)
[2016-04-18] MEDS ORDERED: clonAZEPAM 0.5 MG TAB PO ONE (22:30)
[2016-04-19] VITALS: BP 111/54; RESP 20
[2016-04-19 01:55] VITALS: BP 102/55; RESP 19
[2016-04-19 04:00] VITALS: BP 130/78; RESP 19
[2016-04-19 05:54] LABS: BASOPHILS % 0.4 % (0.0-2.0); EOSINOPHILS # 0.2 10^3/ul (0.0-0.5); EOSINOPHILS % 4.3 % (0.0-7.0); HEMATOCRIT 28.4 % (37.0-47.0); HEMOGLOBIN 9.7 g/dl (12.0-16.0); LYMPHOCYTES # 1.8 10^3/ul (0.8-2.9); LYMPHOCYTES % 33.4 % (15.0-51.0); MEAN CORPUSCULAR HEMOGLOBIN 30.1 pg (29.0-33.0); MEAN CORPUSCULAR HGB CONC 34.1 g/dl (32.0-37.0); MEAN CORPUSCULAR VOLUME 88.2 fl (82.0-101.0); MEAN PLATELET VOLUME 8.9 fl (7.4-10.4); MONOCYTE # 0.5 10^3/ul (0.3-0.9); MONOCYTES % 9.9 % (0.0-11.0); NEUTROPHIL # 2.8 10^3/ul (1.6-7.5); PLATELET COUNT 142 10^3/UL (140-440); RED BLOOD COUNT 3.22 10^6/ul (4.20-5.40); RED CELL DISTRIBUTION WIDTH 13.2 % (11.5-14.5); UNCORRECTED WBC 5.5 10^3/ul (4.8-10.8); WHITE BLOOD COUNT 5.5 10^3/ul (4.8-10.8)
[2016-04-19 06:00] VITALS: BP 109/53; RESP 18
[2016-04-19 06:01] LABS: CONDITION 1
[2016-04-19 06:08] LABS: ALBUMIN 2.9 g/dl (3.3-4.9); POTASSIUM 3.6 mmol/L (3.5-5.1)
[2016-04-19] MEDS: LEVOTHYROXINE 125 MCG TAB PO SCH (06:09)
[2016-04-19 06:11] LABS: ALBUMIN/GLOBULIN RATIO 1.03; BILIRUBIN,INDIRECT 0.2 mg/dl (0-1.1); BILIRUBIN,TOTAL 0.2 mg/dl (0.2-1.3); CREATININE 0.66 mg/dl (0.44-1.00); TOTAL PROTEIN 5.7 g/dl (6.1-8.1)
[2016-04-19 07:16] VITALS: BP 103/54; RESP 18
[2016-04-19] MEDS ORDERED: METHADONE 10 MG TAB PO SCH (09:00)
[2016-04-19] MEDS: DULOXETINE 20 MG CAP DR PO SCH (09:09)
[2016-04-19] MEDS: FAMOTIDINE 20 MG TAB PO SCH (09:10)
[2016-04-19] MEDS: LISINOPRIL 20 MG TAB PO SCH (09:15)
[2016-04-19 09:16] VITALS: BP 139/69; PULSE 62
--- NOTE | 2016-04-19 11:16 | QN ---
Documentation Comment person who wrote 5150 hold who is a staff member in the hospital does not have authority to write a hold, therefore 5150 hold is rescinded. PET clinician from [facility] ([facility] designated hospital) on their way to assess the patient for 5150 hold TIGIST LOZADA Apr 19, 2016 11:15
[2016-04-19] MEDS ORDERED: clonAZEPAM 0.5 MG TAB PO ONE (11:30)
--- NOTE | 2016-04-19 14:01 | PDOCDIS ---
Discharge Instructions DIAGNOSIS Discharge Diagnosis: 1. suicide attempt 2. narcotic overdose CONDITION Patient Condition: Stable HOME CARE INSTRUCTIONS: Special Diet: Regular OTHER ORDERS: Other Orders: 1. Further management and care per [facility] TIGIST LOZADA Apr 19, 2016 14:01
[2016-04-19] MEDS ORDERED: clonAZEPAM 0.5 MG TAB PO PRN (14:20)
--- NOTE | 2016-04-20 09:14 | DS ---
DATE OF ADMISSION: 04/15/2016 DATE OF DISCHARGE: 04/19/2016 CONSULTANTS: 1. Dr. Manolo Pompa. 2. Dr. Gaye Robin. DISCHARGE DIAGNOSES: 1. Intentional overdose with Vistaril and heroin. 2. Suicide attempt. 3. History of major depression. 4. Hypotension, likely secondary to opiate overdose. 5. History of hypothyroidism. 6. Essential hypertension. 7. History of heroin abuse. HOSPITAL COURSE: This is a 51-year-old female with history of homelessness, hypothyroidism, hyperte nsion and hepatitis C, fibromyalgia, heroin abuse who is currently on methadone, who came to [facility] by [employer] due to suicide attempt and ideation. The patient did report that she "wants to ." On further investigation, it was noted that the patient did take multiple pills of Vistaril as well as heroin. There were no visible injuries to her body. The patient was given acti vated charcoal in the ER. The patient was seen by Poison Control pharmacist. Patient initially was awake and alert and her vital signs are stable; however, she was hypotensive with blood pressure as low as 63/40. She was given IV hydration and likely this was due to her narcotic overdose. She wa s positive for benzodiazepines as well as p.o. opioids. The patient was provided with Narcan. She was initially brought to ICU for further monitoring of her airway. She was also put on Narcan drip. We did monitor her vital signs. She was also seen and advised by Poison Control. The patient was with suicide attempt and suicidal ideation and for this she was placed on 1:1 supervision. She was seen by nephrology social worker as well as by tele psychiatrist, who did recommend continuing her antidepress ants and that also recommended that the patient would need inpatient psychiatric facility. During h er stay when she was more awake, she also did state that she was suicidal. During her course of sta y, her vital signs did improve. Her blood pressure did improve after receiving IV fluids. We other lim did optimize patient medically. We continued her on her Synthroid for her hypothyroidism. Due to her hypotension, we just monitor her blood pressure. For her heroin and methadone abuse, we di d have pain management physician come to help dose the methadone. The patient did improve during he r course of stay. She was alert and oriented on the day of her discharge. She was evaluated by PET team and accepted to [facility] inpatient psychiatric facility. The plan of care was discuss ed with the patient and patient did verbalize her understanding. On the day of discharge, the patie nt was in stable condition. DISCHARGE PHYSICAL EXAMINATION: Condition and vital signs are stable. CONDITION: Stable. DISCHARGE PLAN: 1. Diet is regular. 2. Further management and care per [facility]. DISCHARGE MEDICATIONS: 1. Methadone 100 mg p.o. every day. 2. Tylenol 650 mg p.o. q. 6h. as needed for high temperature. 3. Clonazepam 2 mg p.o. t.i.d. 4. Duloxetine (Cymbalta) 20 mg p.o. daily. 5. [place] 1 tab q. 6 hours as needed for pain. 6. Ibuprofen 600 mg p.o. every 6 hours as needed for pain. 7. Levothyroxine 25 mcg p.o. with breakfast. 8. Levothyroxine 125 mcg p.o. with breakfast. 9. Lisinopril 20 mg p.o. every day. DISCHARGE PROCESS TIME: 40 minutes. Discussed plan of care with Dr. Sanchez. Dictated By: TIGIST LOZADA UNEMPLOYMENT SPECIALIST for MELQUIADES ALDANA/JEFF Conf#: [id number] DID#: [id number]
== END 2016-04-19 15:11 | DRG 918 ==
LOC: E/R 08:58 → ICU 12:57 → PP2 04-16 15:46
PROVIDERS: ADMIT Student in an Organized Health Care Education/Training Program; ATTEND Student in an Organized Health Care Education/Training Program
DX: T40.1X2A Poisoning by heroin, intentional self-harm, initial encounter (principal); I95.9 Hypotension, unspecified; T43.592A Poisoning by other antipsychotics and neuroleptics, intentional self-harm, initial encounter; F32.9 Major depressive disorder, single episode, unspecified; I10 Essential (primary) hypertension; E03.9 Hypothyroidism, unspecified; Z59.0 Homelessness; B19.20 Unspecified viral hepatitis C without hepatic coma; M79.7 Fibromyalgia
CPT/HCPCS: 36415; 71010; 80053; 80061; 80306; 80307; 81003; 83036; 83605; 83735; 84100; 84439; 84443; 84484; 84703; 85025; 85610; 85730; 87081; 93005; 96374; 96375; J2310; J2405; J7030; J7040

== ENCOUNTER 2016-06-21 11:40 | Emergency (ER) | payer OTHER ==
[~2016-06-21] VITALS: Ht 167.6 cm; Wt 50.0 kg
[~2016-06-21 11:40] MED LIST changes: +CLON-429 PO; -KLO5 PO
[2016-06-21 11:42] VITALS: Ht 167.6 cm; Wt 50.0 kg
[2016-06-21] MEDS ORDERED: ONDANSETRON (ODT) 4 MG TAB ODT STA (11:55)
[2016-06-21 11:58] VITALS: TEMP 98.5
[2016-06-21] MEDS ORDERED: OSLT75C PO (12:00)
[2016-06-21] MEDS ORDERED: ONDA4TAB14 PO (12:00)
--- NOTE | 2016-06-21 12:10 | ERD ---
ER Documentation Chief Complaint Date/Time DATE: 06/21/16 TIME: 12:09 Chief Complaint n/v, fever x 3 days near syncope HPI Patient is a 51-year-old female with hepatitis C who presents with flulike symptoms. She said the symptoms started yesterday. She is on clonazepam and methadone as well. She said that she has had nausea and vomiting as well as cough. She says that she "fainted" today by her friend who is here with her. Her sugar was normal by paramedics to check twice. She was brought in by ambulance. Upon review of old medical records she has multiple visits to the ER for various complaints. Review of the emergency department information exchange shows this to 3 different emergency departments. She does not currently have a primary doctor. ROS All systems reviewed and are negative except as per history of present illness. Medications Home Meds Active Scripts Oseltamivir Phosphate* (Tamiflu*) 75 Mg Capsule, 75 MG PO BID for 5 Days, CAP Prov:TAYLOR CROSS MD 06/21/16 Ondansetron (Ondansetron Odt) 4 Mg Tab.rapdis, 4 MG PO Q6H Y for NAUSEA AND/OR VOMITING, #30 TAB Prov:TAYLOR CROSS MD 06/21/16 Hydrocodone Bit-Acetaminophen* ([facility]*) 10-325 Mg Tablet, 1 TAB PO Q6 Y for PAIN , #12 TAB Prov:TAYLOR CROSS MD 10/09/15 Acetaminophen* (Acetaminophen*) 650 Mg Tablet, 650 MG PO Q6H Y for PAIN AND OR ELEVATED TEMP, #30 TAB Prov:AILEEN SUAREZ PA-C 10/07/15 Clonazepam* (Klonopin*) 0.5 Mg Tab, 0.5 MG PO DAILY, #3 TAB Prov:AILEEN SUAREZ PA-C 10/07/15 Duloxetine Hcl* (Cymbalta*) 20 Mg Capsule.dr, 20 MG PO DAILY for 3 Days, CAP Prov:AILEEN SUAREZ PA-C 10/07/15 Levothyroxine Sodium* (Levothyroxine Sodium*) 125 Mcg Tablet, 125 MCG PO BEFORE BREAKFAST, #3 TAB Prov:AILEEN SUAREZ PA-C 10/07/15 Clindamycin Hcl* (Clindamycin Hcl*) 300 Mg Capsule, 300 MG PO TID for 10 Days, CAP Prov:AILEEN SUAREZ PA-C 10/07/15 Clindamycin Hcl* (Clindamycin Hcl*) 300 Mg Capsule, 300 MG PO TID for 7 Days, CAP Prov:KENZIE CROWE PA-C 08/30/15 Ibuprofen* (Motrin*) 600 Mg Tab, 600 MG PO Q6, #15 TAB Prov:DARIUS LEONARD NP 08/02/15 Reported Medications Gabapentin* (Gabapentin*) 800 Mg Tablet, 800 MG PO QHS, #90 TAB 06/13/15 Levothyroxine Sodium* (Levoxyl*) 25 Mcg Tablet, 25 MCG PO BEFORE BREAKFAST, #30 TAB 06/13/15 Clonazepam* (Clonazepam*) 2 Mg Tablet, 2 MG PO TID, TAB 06/13/15 Methadone Hcl* (Methadone*) 10 Mg Tab, 210 MG PO DAILY, TAB PT LAST RECEIVED DOSE ON 04/04/16 AT [facility] 06/13/15 Lisinopril* (Lisinopril*) 20 Mg Tablet, 20 MG PO DAILY, #30 TAB 03/29/15 Carisoprodol* (Soma*) 350 Mg Tablet, 350 MG PO Q8H Y for MUSCLE SPASMS, TAB 05/09/14 Allergies Allergies: Coded Allergies: Penicillins (Verified Allergy, Unknown, 06/21/16) Sulfa (Sulfonamide Antibiotics) (Unverified Allergy, Unknown, 06/21/16) cephalexin (Verified Allergy, Unknown, 06/21/16) PMhx/Soc History of Surgery: No Anesthesia Reaction: No Hx Neurological Disorder: Yes (SEIZURE DISORDER) Hx Respiratory Disorders: No Hx Cardiac Disorders: Yes (HTN) Hx Psychiatric Problems: Yes (Hx of Bipolar Disorder) Hx Miscellaneous Medical Probl: Yes (HEPATITIS C, arthritis ) Hx Alcohol Use: No Hx Tobacco Use: Yes Smoking Status: Current every day smoker FmHx Family History: diabetes Physical Exam Vitals Vital Signs Date Time Temp Pulse Resp B/P Pulse Ox O2 Delivery O2 Flow Rate FiO2 06/21/16 11:58 98.5 50 14 127/72 100 Room Air 06/21/16 11:42 98.0 90 18 130/80 99 Physical Exam Const: No acute distress Head: Atraumatic Eyes: Normal Conjunctiva ENT: Normal External Ears, Nose and Mouth. Neck: Full range of motion..~ No meningismus. Resp: Clear to auscultation bilaterally Cardio: Regular rate and rhythm, no murmurs Abd: Soft, non tender, non distended. Normal bowel sounds Skin: No petechiae or rashes Back: No midline or flank tenderness Ext: No cyanosis, or edema Neur: Awake and alert Psych: Normal Mood and Affect Results 24 hrs Current Medications Medications (Trade) Dose Ordered Sig/Lynn Route PRN Reason Start Time Stop Time Status Last Admin Dose Admin Ondansetron HCl (Zofran Odt) 4 mg ONCE STAT ODT 06/21/16 11:55 06/21/16 11:56 DC 06/21/16 12:10 Procedures/MDM EKG read by me: Rate/Rhythm: Sinus bradycardia at a rate of 50 Intervals: Normal Impression: Sinus bradycardia without evidence of ischemia Smoking Cessation Therapy: Pt. was lectured for greater than 3 minutes on the health risks of continued smoking and the benefits of cessation. Patient is a 51-year-old female who presents with nausea, vomiting, cough, and syncope. Her EKG shows bradycardia without signs of ischemia or other arrhythmia. Her Accu-Chek was normal by paramedics. She has normal vital signs here in the emergency department. At this point I doubt serious bacterial infection or other serious etiology. She may have influenza and I will treat her with Tamiflu. She was given Zofran in the emergency department. She will be given a prescription for Zofran. She will return for any worsening symptoms. She should follow-up the local clinics within 24-48 hours for reevaluation. Departure Diagnosis: Primary Impression: Syncope Syncope type: unspecified Qualified Code: R55 - Syncope, unspecified syncope type Additional Impressions: Nausea and vomiting Vomiting type: unspecified Vomiting Intractability: non-intractable Qualified Code: R11.2 - Non-intractable vomiting with nausea, unspecified vomiting type Influenza Patient Instructions: Nausea and Vomiting-Adult, Influenza (Adult), Syncope, Unk Cause Referrals: COMMUNITY CLINICS YOU HAVE RECEIVED A MEDICAL SCREENING EXAM AND THE RESULTS INDICATE THAT YOU DO NOT HAVE A CONDITION THAT REQUIRES URGENT TREATMENT IN THE EMERGENCY DEPARTMENT. FURTHER EVALUATION AND TREATMENT OF YOUR CONDITION CAN WAIT UNTIL YOU ARE SEEN IN YOUR DOCTORS OFFICE WITHIN THE NEXT 1-2 DAYS. IT IS YOUR RESPONSIBILITY TO MAKE AN APPOINTMENT FOR FOLOW-UP CARE. IF YOU HAVE A PRIMARY DOCTOR --you should call your primary doctor and schedule an appointment IF YOU DO NOT HAVE A PRIMARY DOCTOR YOU CAN CALL OUR PHYSICIAN REFERRAL HOTLINE AT IF YOU CAN NOT AFFORD TO SEE A PHYSICIAN YOU CAN CHOSE FROM THE FOLLOWING [facility] [employer] [address] [facility] [address] [facility] [facility] [address] [facility] [address] [facility] [facility] [address] [facility] [facility]. [address] Additional Instructions: Call your primary care doctor TOMORROW for an appointment during the next 1-2 days.See the doctor sooner or return here if your condition worsens before your appointment time. TAYLOR CROSS MD Jun 21, 2016 12:10
[2016-06-21 12:20] VITALS: BP 111/68; PULSE 52; RESP 14
== END 2016-06-21 12:28 | disposition home or self-care (01) ==
LOC: E/R 11:40
DX: R55 Syncope and collapse (principal); J11.1 Influenza due to unidentified influenza virus with other respiratory manifestations; I10 Essential (primary) hypertension; F17.210 Nicotine dependence, cigarettes, uncomplicated
CPT/HCPCS: 93005; Z7502; Z7610